=== PATIENT | female | born 1975 | race Caucasian/White ===

== ENCOUNTER 2020-06-01 19:01 | Emergency (ER) | payer OTHER, SELFPAY ==
[2020-06-01 19:11] VITALS: BP 134/76; PULSE 103; RESP 18; TEMP 36.3; O2SAT 99
[2020-06-01] MEDS: LIDOCAINE HCL 2% JELLY 5 ML TUBE 1 APPLIC (19:20)
[2020-06-01] MEDS: LIDOCAINE HCL 2% LOCAL INJ 20 ML VIAL (19:25)
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
[2020-06-01] MEDS: TETANUS,DIPHTHERIA,AC PERTUSSIS ADULT (0.5 ML) BOOSTRIX IM (19:58)
[2020-06-01 20:03] VITALS: BP 129/75; PULSE 87; RESP 18; O2SAT 99
== END 2020-06-01 20:06 | disposition home or self-care (01) ==
PROVIDERS: Emergency Provider Emergency Medicine
DX: S61.215A Laceration without foreign body of left ring finger without damage to nail, initial encounter (principal); W26.8XXA Contact with other sharp object(s), not elsewhere classified, initial encounter; Z23 Encounter for immunization
CPT/HCPCS: 12001; 90471; 90715; 99282